=== PATIENT | female | born 1985 | race Two or more races ===

== ENCOUNTER 2017-02-08 18:12 | Emergency (ER) | payer OTHER, MEDICAID ==
[2017-02-08] MEDS ORDERED: AZITHROMYCIN 250 MG TABLET ONE (19:07)
== END 2017-02-08 19:18 | disposition home or self-care (01) ==
LOC: ED 18:12
DX: O99.512 Diseases of the respiratory system complicating pregnancy, second trimester (principal); J20.9 Acute bronchitis, unspecified; Z3A.23 23 weeks gestation of pregnancy
CPT/HCPCS: 99283 ×2; A9270